=== PATIENT | male | born 1955 | race Caucasian/White ===

== ENCOUNTER 2019-09-02 11:06 | Emergency (ER) | payer SELFPAY ==
[2019-09-02] MEDS ORDERED: Albuterol/Ipratropium 3.0-0.5 MG/3 ML Neb Soln NEB ONE (11:22)
== END 2019-09-02 14:20 | disposition left against medical advice (07) ==
LOC: DL.ED 11:06
DX: Z53.21 Procedure and treatment not carried out due to patient leaving prior to being seen by health care provider (principal)
CPT/HCPCS: 94640; J7620-GY

== ENCOUNTER 2019-09-03 10:49 | Emergency (ER) | payer OTHER ==
--- NOTE | 2019-09-03 11:28 | EDM.PDOC ---
<Fabrice Major - Last Filed: 09/03/19 11:28> ED HPI GENERAL MEDICAL PROBLEM - General Chief Complaint: Respiratory Problem Stated Complaint: COLD COUGH Time Seen by Provider: 09/03/19 11:24 Source of Information: Reports: Patient, RN, RN Notes Reviewed History Limitations: Reports: No Limitations - History of Present Illness INITIAL COMMENTS - FREE TEXT/NARRATIVE: Pt states started with cough on 08/31, worsening on 09/01. Pt states he will cough until he's so short of breath that it 'feels like I'm going to pass out'. Runny nose and sneezing increased in last 24 hours. Pt seen by nursing and given neb in ER yesterday, wait was too long for provider. Pt used nebulizer last evening and this morning. At 0900 at work today, pt began to cough and took breath away. Assessment pt has expiratory wheezes in posterior left, right hernandez with expiratory wheezes and groans throughout. Unknown sick contacts, at concert in [place] last Friday. Onset: Gradual Duration: Day(s): (3 days) Location: Reports: Chest Severity: Mild Improves with: Reports: None Worsens with: Reports: None Associated Symptoms: Reports: Cough, Shortness of Breath. 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 - Related Data Allergies Allergy/AdvReac Type Severity Reaction Status Date / Time No Known Allergies Allergy Verified 09/03/19 11:12 Past Medical History HEENT History: Reports: None Cardiovascular History: Reports: High Cholesterol Respiratory History: Reports: None Gastrointestinal History: Reports: GERD Genitourinary History: Reports: None Musculoskeletal History: Reports: None Neurological History: Reports: None Psychiatric History: Reports: None Endocrine/Metabolic History: Reports: Obesity/BMI 30+ Hematologic History: Reports: None Immunologic History: Reports: None Oncologic (Cancer) History: Reports: None Dermatologic History: Reports: None - Infectious Disease History Infectious Disease History: Reports: Chicken Pox, Measles, Mumps - Past Surgical History Head Surgeries/Procedures: Reports: None Cardiovascular Surgical History: Reports: None Respiratory Surgical History: Reports: None GI Surgical History: Reports: None Musculoskeletal Surgical History: Reports: None Social & Family History - Family History Family Medical History: Noncontributory - Tobacco Use Smoking Status *Q: Never Smoker Second Hand Smoke Exposure: No - Caffeine Use Caffeine Use: Reports: Soda - Recreational Drug Use Recreational Drug Use: No ED ROS GENERAL - Review of Systems Review Of Systems: See Below Constitutional: Denies: Fever, Chills, Weakness HEENT: Reports: No Symptoms Respiratory: Reports: Shortness of Breath, Wheezing, Cough. Denies: Sputum Cardiovascular: Reports: No Symptoms Endocrine: Reports: No Symptoms GI/Abdominal: Reports: No Symptoms : Reports: No Symptoms Musculoskeletal: Reports: No Symptoms Skin: Reports: No Symptoms Neurological: Reports: No Symptoms Psychiatric: Reports: No Symptoms Hematologic/Lymphatic: Reports: No Symptoms Immunologic: Reports: No Symptoms ED EXAM, GENERAL - Physical Exam Exam: See Below Exam Limited By: No Limitations General Appearance: Alert, WD/WN, No Apparent Distress Ears: Normal External Exam, Normal Canal, Hearing Grossly Normal, Normal TMs Nose: Normal Inspection, Normal Mucosa, No Blood Throat/Mouth: Normal Inspection, Normal Lips, Normal Teeth, Normal Gums, Normal Oropharynx, Normal Voice, No Airway Compromise Head: Atraumatic, Normocephalic Neck: Normal Inspection, Supple, Non-Tender, Full Range of Motion Respiratory/Chest: No Respiratory Distress, No Accessory Muscle Use, Wheezing ( bilateral expiratory wheezes). No: Crackles Cardiovascular: Normal Peripheral Pulses, Regular Rate, Rhythm, No Edema, No Gallop, No JVD, No Murmur, No Rub Peripheral Pulses: 2+: Carotid (L), Carotid (R) GI/Abdominal: Normal Bowel Sounds, Soft, Non-Tender, No Organomegaly, No Distention, No Abnormal Bruit, No Mass (Male) Exam: Deferred Rectal (Males) Exam: Deferred Neurological: Alert, Oriented, CN II-XII Intact, Normal Cognition, Normal Gait, Normal Reflexes, No Motor/Sensory Deficits Psychiatric: Normal Affect, Normal Mood Course - Vital Signs Last Recorded V/S: Last Vital Signs Temp 97.6 F 09/03/19 11:06 Pulse 88 09/03/19 11:58 Resp 20 09/03/19 11:06 BP 142/82 H 09/03/19 11:06 Pulse Ox 95 09/03/19 11:06 - Orders/Labs/Meds Orders: Active Orders 24 hr Category Date Time Status RT Aerosol Therapy [RC] ASDIRECTED Care 09/03/19 11:29 Active RT Aerosol Therapy [RC] ASDIRECTED Care 09/03/19 11:30 Active Labs: Laboratory Tests 09/03/19 09/03/19 Range/Units 11:36 11:36 WBC 9.3 (5.0-10.0) 10^3/uL RBC 4.72 (4.6-6.2) 10^6/uL Hgb 14.2 (14.0-18.0) g/dL Hct 40.9 (40.0-54.0) % MCV 86.7 (80-100) fL MCH 30.1 (27.0-34.0) pg MCHC 34.7 (33.0-35.0) g/dL Plt Count 308 (150-450) 10^3/uL Neut % (Auto) 85.4 H (42.2-75.2) % Lymph % (Auto) 7.7 L (20.5-50.1) % [place] % (Auto) 6.2 (2-8) % Eos % (Auto) 0.4 L (1.0-3.0) % Baso % (Auto) 0.3 (0.0-1.0) % Sodium 133 L (135-145) mmol/L Potassium 3.5 L (3.6-5.0) mmol/L Chloride 96 L (101-111) mmol/L Carbon Dioxide 25.0 (21.0-31.0) mmol/L Anion Gap 15.5 BUN 17 (7-18) mg/dL Creatinine 1.6 H (0.6-1.3) mg/dL Est Cr Clr Drug Dosing 53.41 mL/min Estimated GFR (MDRD) 44 BUN/Creatinine Ratio 10.62 Glucose 176 H (74-105) mg/dL Calcium 8.9 (8.4-10.2) mg/dl Total Bilirubin 0.7 (0.2-1.0) mg/dL AST 29 (10-42) IU/L ALT 20 (10-60) IU/L Alkaline Phosphatase 70 (42-121) IU/L Total Protein 8.0 (6.7-8.2) g/dl Albumin 4.3 (3.2-5.5) g/dl Globulin 3.7 Albumin/Globulin Ratio 1.16 Meds: Medications Discontinued Medications Generic Name Dose Route Start Last Admin Trade Name Freq PRN Reason Stop Dose Admin Albuterol/Ipratropium 3 ml 09/03/19 11:29 09/03/19 11:53 Duoneb 3.0-0.5 Mg/3 Ml NEB 09/03/19 11:30 3 ml ONETIME ONE Administration Budesonide 1 mg 09/03/19 11:30 09/03/19 11:53 Pulmicort NEB 09/03/19 11:31 1 mg ONETIME ONE Administration Budesonide Confirm 09/03/19 11:41 Pulmicort Administered 09/03/19 11:42 Dose 0.5 mg .ROUTE .STK-MED ONE Budesonide Confirm 09/03/19 11:55 Pulmicort Administered 09/03/19 11:56 Dose 0.5 mg .ROUTE .STK-MED ONE Departure - Departure Disposition: Home, Self-Care 01 Clinical Impression: Bronchitis - Discharge Information Instructions: Upper Respiratory Infection, Adult, [id number] Referrals: PCP,Unobtain [Primary Care Provider] - Forms: ED Department Discharge Additional Instructions: RX for compact nebulizer. Duo-Neb ampules 4 times a day as needed for cough wheezing congestion SOB. RX given to the patient. Z-Pack as prescribed. Prednisone 60mg a day for the next 5 days. 2 more days given he had 3 already. Increase fluids over the next few days. Return to the ED if new or worsening symptoms. Follow up with PCP in the next 4-6 days if not improving sooner if worse. Sepsis Event Note - Evaluation Sepsis Screening Result: No Definite Risk - Focused Exam Vital Signs: Vital Signs Temp Pulse Resp BP Pulse Ox 09/03/19 11:58 88 09/03/19 11:06 97.6 F 86 20 142/82 H 95 Date Exam was Performed: 09/03/19 Time Exam was Performed: 11:28 <Jarret Johnston - Last Filed: 09/03/19 12:20> Course - Orders/Labs/Meds Labs: Laboratory Tests 09/03/19 09/03/19 Range/Units 11:36 11:36 WBC 9.3 (5.0-10.0) 10^3/uL RBC 4.72 (4.6-6.2) 10^6/uL Hgb 14.2 (14.0-18.0) g/dL Hct 40.9 (40.0-54.0) % MCV 86.7 (80-100) fL MCH 30.1 (27.0-34.0) pg MCHC 34.7 (33.0-35.0) g/dL Plt Count 308 (150-450) 10^3/uL Neut % (Auto) 85.4 H (42.2-75.2) % Lymph % (Auto) 7.7 L (20.5-50.1) % [place] % (Auto) 6.2 (2-8) % Eos % (Auto) 0.4 L (1.0-3.0) % Baso % (Auto) 0.3 (0.0-1.0) % Sodium 133 L (135-145) mmol/L Potassium 3.5 L (3.6-5.0) mmol/L Chloride 96 L (101-111) mmol/L Carbon Dioxide 25.0 (21.0-31.0) mmol/L Anion Gap 15.5 BUN 17 (7-18) mg/dL Creatinine 1.6 H (0.6-1.3) mg/dL Est Cr Clr Drug Dosing 53.41 mL/min Estimated GFR (MDRD) 44 BUN/Creatinine Ratio 10.62 Glucose 176 H (74-105) mg/dL Calcium 8.9 (8.4-10.2) mg/dl Total Bilirubin 0.7 (0.2-1.0) mg/dL AST 29 (10-42) IU/L ALT 20 (10-60) IU/L Alkaline Phosphatase 70 (42-121) IU/L Total Protein 8.0 (6.7-8.2) g/dl Albumin 4.3 (3.2-5.5) g/dl Globulin 3.7 Albumin/Globulin Ratio 1.16 - Re-Assessments/Exams Free Text/Narrative Re-Assessment/Exam: 09/03/19 11:38 I personally performed or re-performed the physical examination and medical decision making. I have verified all student documentation or findings, including history, physical exam and/or medical decision making. Departure - Departure Time of Disposition: 12:21 Sepsis Event Note - Focused Exam Date Exam was Performed: 09/03/19 Time Exam was Performed: 12:21 - Assessment/Plan Assessment:: Bronchitis Plan: RX for compact nebulizer. Duo-Neb ampules 4 times a day as needed for cough wheezing congestion SOB. RX given to the patient. Z-Pack as prescribed. Prednisone 60mg a day for the next 5 days. 2 more days given he had 3 already. Increase fluids over the next few days. Return to the ED if new or worsening symptoms. Follow up with PCP in the next 4-6 days if not improving sooner if worse. <Kathya Storey - Last Filed: 09/03/19 16:53> Course - Re-Assessments/Exams Free Text/Narrative Re-Assessment/Exam: 09/03/19 16:53 I personally performed or re-performed the physical examination and medical decision making. I have verified all student documentation or findings, including history, physical exam and/or medical decision making. Sepsis Event Note - Focused Exam Date Exam was Performed: 09/03/19 Time Exam was Performed: 16:53
[2019-09-03] MEDS ORDERED: Albuterol/Ipratropium 3.0-0.5 MG/3 ML Neb Soln NEB ONE (11:29)
--- NOTE | 2019-09-03 11:29 | EDM.PDOC ---
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 - Related Data Allergies Allergy/AdvReac Type Severity Reaction Status Date / Time No Known Allergies Allergy Verified 09/03/19 11:12 Past Medical History HEENT History: Reports: None Cardiovascular History: Reports: High Cholesterol Respiratory History: Reports: None Gastrointestinal History: Reports: GERD Genitourinary History: Reports: None Musculoskeletal History: Reports: None Neurological History: Reports: None Psychiatric History: Reports: None Endocrine/Metabolic History: Reports: Obesity/BMI 30+ Hematologic History: Reports: None Immunologic History: Reports: None Oncologic (Cancer) History: Reports: None Dermatologic History: Reports: None - Infectious Disease History Infectious Disease History: Reports: Chicken Pox, Measles, Mumps - Past Surgical History Head Surgeries/Procedures: Reports: None Cardiovascular Surgical History: Reports: None Respiratory Surgical History: Reports: None GI Surgical History: Reports: None Musculoskeletal Surgical History: Reports: None Social & Family History - Family History Family Medical History: Noncontributory - Tobacco Use Smoking Status *Q: Never Smoker Second Hand Smoke Exposure: No - Caffeine Use Caffeine Use: Reports: Soda - Recreational Drug Use Recreational Drug Use: No Course - Vital Signs Last Recorded V/S: Last Vital Signs Temp 36.4 C 09/03/19 11:06 Pulse 86 09/03/19 11:06 Resp 20 09/03/19 11:06 BP 142/82 H 09/03/19 11:06 Pulse Ox 95 09/03/19 11:06 - Orders/Labs/Meds Orders: Active Orders 24 hr Category Date Time Status RT Aerosol Therapy [RC] ASDIRECTED Care 09/03/19 11:29 Active RT Aerosol Therapy [RC] ASDIRECTED Care 09/03/19 11:30 Active Chest 2V [CR] Urgent Exams 09/03/19 11:25 Ordered CBC WITH AUTO DIFF [HEME] Stat Lab 09/03/19 11:27 Ordered CMP [COMPREHENSIVE METABOLIC PN,CMP] [CHEM] Stat Lab 09/03/19 11:27 Ordered Meds: Medications Discontinued Medications Generic Name Dose Route Start Last Admin Trade Name Freq PRN Reason Stop Dose Admin Albuterol/Ipratropium 3 ml 09/03/19 11:29 Duoneb 3.0-0.5 Mg/3 Ml NEB 09/03/19 11:30 ONETIME ONE Budesonide 1 mg 09/03/19 11:30 Pulmicort NEB 09/03/19 11:31 ONETIME ONE - Re-Assessments/Exams Free Text/Narrative Re-Assessment/Exam: 09/03/19 11:27 I personally performed or re-performed the physical examination and medical decision making. I have verified all student documentation or findings, including history, physical exam and/or medical decision making. Departure - Discharge Information Forms: ED Department Discharge Sepsis Event Note - Evaluation Sepsis Screening Result: No Definite Risk - Focused Exam Vital Signs: Vital Signs Temp Pulse Resp BP Pulse Ox 09/03/19 11:06 36.4 C 86 20 142/82 H 95 Date Exam was Performed: 09/03/19 Time Exam was Performed: 11:35 - My Orders Last 24 Hours: My Active Orders 09/03/19 11:30 RT Aerosol Therapy [RC] ASDIRECTED - Assessment/Plan Last 24 Hours: My Active Orders 09/03/19 11:30 RT Aerosol Therapy [RC] ASDIRECTED
[2019-09-03] MEDS ORDERED: Budesonide 0.5 MG/2 ML Neb Susp NEB ONE (11:30)
[2019-09-03] MEDS ORDERED: Budesonide 0.5 MG/2 ML Neb Susp ONE ×2 (11:41→11:55)
[2019-09-03 12:03] LABS: ANION GAP 15.5
--- NOTE | 2019-09-03 12:03 | CR ---
EXAMINATION: Chest 2V SEX: Male AGE: 64 years CLINICAL HISTORY: 64-year-old male experiencing shortness of breath. INTERPRETATION: 1. Azygous lobe anomaly. Normal cardiac silhouette. Left-sided aortic arch. 2. Generally poor inspiratory effort obese male with subtle patchy non consolidative right infrahilar atelectatic like density. 3. No lung mass, hilar lymphadenopathy or focal lobar infiltrate. No other atelectasis or collapse. 4. No pneumothorax. 5. Normal cardiac silhouette without pulmonary vascular congestion, cephalization of flow, alveolar edema or pleural effusion. CONCLUSION: Azygous lobe. Right infrahilar atelectasis. Otherwise negative plain film exam chest.
== END 2019-09-03 12:30 | disposition home or self-care (01) ==
LOC: DL.ED 10:49
DX: J40 Bronchitis, not specified as acute or chronic (principal); E66.9 Obesity, unspecified; Z68.41 Body mass index [BMI] 40.0-44.9, adult
CPT/HCPCS: 36415; 71046; 80053; 85025; 94640; 99285-25; J7620-GY

== ENCOUNTER 2021-12-01 07:36 | Emergency (ER) | payer OTHER ==
[2021-12-01] MEDS ORDERED: Ketorolac 30 MG/ML SDV IM ONE (08:58)
== END 2021-12-01 09:48 | disposition home or self-care (01) ==
LOC: DL.ED 07:36
DX: M54.50 Low back pain, unspecified (principal); E78.00 Pure hypercholesterolemia, unspecified; I10 Essential (primary) hypertension; K21.9 Gastro-esophageal reflux disease without esophagitis; E66.9 Obesity, unspecified; Z68.41 Body mass index [BMI] 40.0-44.9, adult; Z79.899 Other long term (current) drug therapy; Z79.82 Long term (current) use of aspirin
CPT/HCPCS: 96372; 99283; J1885

== ENCOUNTER 2024-04-25 17:56 | Emergency (ER) | payer OTHER ==
[2024-04-25] MEDS: predniSONE 20 MG Tab PO ONE (18:17)
[2024-04-25] MEDS: Albuterol/Ipratropium 3.0-0.5 MG/3 ML Neb Soln NEB ONE (18:18)
[2024-04-25] MEDS: Take Home: predniSONE 20 MG, 4 Tab Pack PO ONE (19:09)
[2024-04-25] MEDS: Take Home: Albuterol/Ipratropium 3.0-0.5 MG/3 ML Neb Soln, 4 Neb Pack NEB ONE (19:09)
[2024-04-25] MEDS: Albuterol 6.7 GM Inhaler INH ONE (19:10)
== END 2024-04-25 19:22 | disposition home or self-care (01) ==
LOC: DL.ED 17:56
DX: J06.9 Acute upper respiratory infection, unspecified (principal); I10 Essential (primary) hypertension
CPT/HCPCS: 71046; 87804; 99284; A9270-GY; J7512; J7620-GY; U0002